=== PATIENT | female | born 1950 | race Caucasian/White ===

== ENCOUNTER 2018-02-10 15:01 | Emergency (ER) | payer MEDICARE ==
[~2018-02-10] VITALS: Ht 578.2 cm; Wt 72.7 kg
[~2018-02-10 15:01] MED LIST: ATEN25TA PO; CETI-102 PO; LEVO75TA7 PO; OMEP20TA5 PO; TRIA1TAB3 PO
[2018-02-10 15:27] LABS: HEMATOCRIT 40.3 % (35.0-45.0); HEMOGLOBIN 12.8 g/dl (12.0-16.0); MEAN CORPUSCULAR HGB CONC 31.8 % (33.0-36.5); MEAN CORPUSCULAR VOLUME 78.6 FL (78-98); MEAN PLATELET VOLUME 7.2 FL (7.4-10.4); PLATELET COUNT 378 X10'3 (140-440); RED BLOOD COUNT 5.13 X10'6 (4.20-5.60); RED CELL DISTRIBUTION WIDTH 14.7 % (11.5-14.5); WHITE BLOOD COUNT 22.1 X10'3 (4.5-11.0)
[2018-02-10 15:37] LABS: INR 1.3 INR; PARTIAL THROMBOPLASTIN TIME 27 SECONDS (22-32); PROTHROMBIN TIME 12.9 SECONDS (9.0-12.0)
[2018-02-10 15:41] LABS: ALANINE AMINOTRANSFERASE 32 U/L (12-78); ALBUMIN 2.2 G/DL (3.4-5.0); ALBUMIN/GLOBULIN RATIO 0.5 (1.1-1.5); ALKALINE PHOSPHATASE 274 IU/L (46-116); ANION GAP 14 (8-16); ASPARTATE AMINO TRANSFERASE 57 U/L (10-37); BILIRUBIN,TOTAL 1.2 MG/DL (0.1-1.0); BLOOD UREA NITROGEN 16 MG/DL (7-18); BUN/CREATININE RATIO 10.1 (6.6-38.0); CALCIUM 8.1 MG/DL (8.5-10.1); CHLORIDE 95 MMOL/L (99-107); CREATININE 1.59 MG/DL (0.40-0.90); GLUCOSE 164 MG/DL (70-104); POTASSIUM 4.2 MMOL/L (3.5-5.1); SODIUM 130 MMOL/L (135-145); TOTAL CARBON DIOXIDE 20.9 MMOL/L (24-32); TOTAL PROTEIN 6.5 G/DL (6.4-8.2); eGFR 32 ML/MIN
[2018-02-10 15:55] LABS: TOTAL CELLS COUNTED 100
[2018-02-10 15:57] LABS: PLATELET ESTIMATE NORMAL; POIKILOCYTOSIS 1+; POLYCHROMASIA FEW
[2018-02-10] MEDS ORDERED: ondansetron/PF 4mg/2ml inj IV ONE (16:35)
[2018-02-10] MEDS ORDERED: normal saline 1000ML IV soln IVB ONE (16:35)
[2018-02-10] MEDS: diatr meglu/diatrizoate 30ml oral sol.-(3 dose) bottle PO SCH ×2 (16:35→17:20)
[2018-02-10 16:44] LABS: D-DIMER 11.02 MG/L FEU (0-0.50)
[2018-02-10 16:49] LABS: LIPASE 329 U/L (73-393)
[2018-02-10] MEDS ORDERED: normal saline 1000ML IV soln IV ONE (16:50)
[2018-02-10] MEDS ORDERED: fentaNYL/PF 50MCG/1 ML 2ML syringe IV ONE ×2 (17:00→19:35)
[2018-02-10] MEDS ORDERED: iohexol 350MG/ML 100ml bottle IV ONE (17:24)
[2018-02-10] MEDS ORDERED: furosemide 10 MG/1 ML 10ml inj IV ONE (18:15)
[2018-02-10 19:53] LABS: UA COLLECTION TYPE CLN CATCH MIDSTREAM
[2018-02-10 19:54] LABS: CLARITY,URINE CLEAR (Clear); COLOR,URINE YELLOW (Yellow)
[2018-02-10 19:58] LABS: GLUCOSE, URINE NEGATIVE (Neg); PH,URINE 5.5 (4.8-8.0); PROTEIN,URINE TRACE mg/dl (Neg)
[2018-02-10 19:59] LABS: KETONES,URINE NEGATIVE (Neg); LEUKOCYTE ESTERASE ,URINE TRACE (Neg); NITRITES, URINE NEGATIVE (Neg); OCCULT BLOOD,URINE TRACE-INTACT (Neg)
[2018-02-10 20:00] LABS: BACTERIA,URINE 1+ /HPF (Neg); SQUAMOUS EPITHELIAL CELL,UR FEW /LPF (FEW)
[2018-02-10] MEDS ORDERED: ONDA4TAB9 PO (20:00)
[2018-02-10] MEDS ORDERED: OXYC-145 PO (20:00)
[2018-02-10 20:29] VITALS: BP 97/65
[2018-02-13 06:01] LABS: CARCINOEMBRYONIC ANTIGEN 28.1 ng/mL (0.0-4.7)
== END 2018-02-10 20:33 | disposition home or self-care (01) ==
LOC: ER 15:01
DX: C25.9 Malignant neoplasm of pancreas, unspecified (principal); I10 Essential (primary) hypertension; K21.9 Gastro-esophageal reflux disease without esophagitis; Z79.899 Other long term (current) drug therapy
CPT/HCPCS: 36415; 71045; 71275; 74177; 80053; 81001; 82378; 83605; 83690; 83880; 84484; 85025; 85379; 85610; 85730; 86301; 87040; 87088; 93005; 96361; 96374; 96375; 99285; J2405; J3010; J7030; Q9967

== ENCOUNTER 2018-02-14 09:05 | Inpatient (IN) | payer MEDICARE ==
[~2018-02-14] VITALS: Ht 167.6 cm; Wt 93.3 kg
[~2018-02-14 09:05] MED LIST changes: +ONDA4TAB9 PO; +OXYC-145 PO
[2018-02-14] MEDS ORDERED: LOSA50TA3 PO (09:46)
[2018-02-14] MEDS ORDERED: LEVO500T2 PO (09:46)
[2018-02-14] MEDS ORDERED: TRAZ150T78 PO (09:46)
[2018-02-14] MEDS ORDERED: ONDA4TAB9 PO (09:47)
[2018-02-14] MEDS ORDERED: OXYC-145 PO (09:47)
[2018-02-14 09:55] LABS: HEMATOCRIT 41.2 % (35.0-45.0); HEMOGLOBIN 13.3 g/dl (12.0-16.0); MEAN CORPUSCULAR HGB CONC 32.3 % (33.0-36.5); MEAN CORPUSCULAR VOLUME 77.3 FL (78-98); PLATELET COUNT 178 X10'3 (140-440); RED BLOOD COUNT 5.32 X10'6 (4.20-5.60); RED CELL DISTRIBUTION WIDTH 16.6 % (11.5-14.5)
[2018-02-14 10:02] LABS: WHITE BLOOD COUNT 34.3 X10'3 (4.5-11.0)
[2018-02-14] MEDS ORDERED: normal saline 1000ML IV soln IV ONE (10:05)
[2018-02-14] MEDS ORDERED: CefTRIAXone 2gm/D5W 50ml 50 ML IV ONE (10:05)
[2018-02-14 10:09] LABS: ALANINE AMINOTRANSFERASE 27 U/L (12-78); ALBUMIN 1.9 G/DL (3.4-5.0); ALBUMIN/GLOBULIN RATIO 0.5 (1.1-1.5); ALKALINE PHOSPHATASE 296 IU/L (46-116); ANION GAP 17 (8-16); ASPARTATE AMINO TRANSFERASE 56 U/L (10-37); BILIRUBIN,TOTAL 0.9 MG/DL (0.1-1.0); BLOOD UREA NITROGEN 21 MG/DL (7-18); BUN/CREATININE RATIO 14.4 (6.6-38.0); CALCIUM 8.5 MG/DL (8.5-10.1); CHLORIDE 97 MMOL/L (99-107); CREATININE 1.46 MG/DL (0.40-0.90); GLUCOSE 160 MG/DL (70-104); POTASSIUM 4.5 MMOL/L (3.5-5.1); SODIUM 131 MMOL/L (135-145); TOTAL CARBON DIOXIDE 17.1 MMOL/L (24-32); TOTAL PROTEIN 6.1 G/DL (6.4-8.2); eGFR 36 ML/MIN
[2018-02-14 10:10] LABS: ANISOCYTOSIS 1+; PLATELET ESTIMATE NORMAL; TOTAL CELLS COUNTED 100
[2018-02-14 10:11] LABS: MICROCYTOSIS 1+; POIKILOCYTOSIS FEW; POLYCHROMASIA FEW
[2018-02-14] MEDS ORDERED: piperacillin/tazo 3.375gm/50ml 50 ML IV ONE (10:45)
[2018-02-14] MEDS ORDERED: enoxaparin 100mg/ml syringe SUBCUT ONE (10:55)
[2018-02-14] MEDS ORDERED: enoxaparin 80mg/0.8ml syringe SUBCUT ONE (11:05)
[2018-02-14] MEDS ORDERED: morphine 4 MG/ML inj SYRINge IV ONE (13:35)
[2018-02-14 14:08] LABS: CLARITY,URINE CLEAR (Clear); COLOR,URINE YELLOW (Yellow); GLUCOSE, URINE NEGATIVE (Neg); KETONES,URINE NEGATIVE (Neg); LEUKOCYTE ESTERASE ,URINE TRACE (Neg); NITRITES, URINE NEGATIVE (Neg); OCCULT BLOOD,URINE NEGATIVE (Neg); PROTEIN,URINE TRACE mg/dl (Neg)
[2018-02-14 14:13] LABS: UA COLLECTION TYPE VOIDED
[2018-02-14 14:14] LABS: BACTERIA,URINE FEW /HPF (Neg); MUCUS STRANDS FEW /LPF (Neg); RBC,URINE 0-2 /HPF (0-2); SQUAMOUS EPITHELIAL CELL,UR FEW /LPF (FEW)
[2018-02-14] MEDS ORDERED: acetylcysteine 200 MG/ml 4ml vial PO ONE (14:20)
[2018-02-14] MEDS ORDERED: acetylcysteine 200 MG/ml 4ml vial CORPAK ONE (14:20)
[2018-02-14] MEDS ORDERED: normal saline 1000ml 1,000 ML IV SCH (15:02)
[2018-02-14] MEDS ORDERED: iohexol 350MG/ML 100ml bottle IV ONE (15:04)
[2018-02-14] MEDS ORDERED: HYDROcodone/acetaminophen 5mg/325mg tablet PO PRN (15:05)
[2018-02-14] MEDS ORDERED: magnesium Cl slow-release 64mg tablet PO PRN (15:05)
[2018-02-14] MEDS ORDERED: potassium Cl 20 mEq SR tablet PO PRN ×2 (15:05)
[2018-02-14] MEDS ORDERED: ondansetron/PF 4mg/2ml inj IV PRN (15:05)
[2018-02-14] MEDS ORDERED: HYDROcodone/acetaminophen 10/325mg tab PO PRN (15:05)
[2018-02-14] MEDS ORDERED: potassium Cl 40MEQ/NS 500ml 500 ML IV PRN ×2 (15:05)
[2018-02-14] MEDS ORDERED: mag hydrox/Alum hydrox/simeth 30ml oral suspension PO PRN (15:05)
[2018-02-14] MEDS ORDERED: morphine 4 MG/ML inj SYRINge IV PRN ×2 (15:05)
[2018-02-14] MEDS ORDERED: acetaminophen 325mg tablet PO PRN (15:05)
[2018-02-14] MEDS ORDERED: magnesium 4gm in 100ml NS 100 ML IV PRN (15:05)
[2018-02-14] MEDS ORDERED: magnesium 1gm/100ml D5W IVPB 100 ML IV PRN (15:05)
[2018-02-14] MEDS ORDERED: bisacodyl 10mg suppository rectal RC PRN (15:05)
[2018-02-14] MEDS ORDERED: vancomycin/NS 1 GM ADD-VANTAGE 250 ML IV SCH (15:15)
[2018-02-14] MEDS ORDERED: cetirizine 10mg tablet PO PRN (15:35)
[2018-02-14] MEDS ORDERED: piperacillin/tazo 4.5gm/100ml 100 ML IV SCH (16:00)
[2018-02-14 16:59] VITALS: BP 108/70
[2018-02-14] MEDS: piperacillin/tazo 4.5gm/100ml 100 ML IV SCH (18:00)
[2018-02-14 19:00] VITALS: BP 92/51
[2018-02-14] MEDS: docusate sod 100mg capsule PO SCH (20:16)
[2018-02-14] MEDS: traZODone 150mg tablet PO SCH (20:16)
[2018-02-14] MEDS: lactobacillus rhamnosus 10,000 MMU CELLS/CAPSULE PO SCH (20:16)
[2018-02-14] MEDS: sodium bicarbonate (8.4%) inj. 150 MEQ in dextrose 5%-water 1,000 ML IV SCH (20:26)
[2018-02-14 23:00] VITALS: BP 106/45
[2018-02-14] MEDS: enoxaparin 80mg/0.8ml syringe SUBCUT SCH (23:00)
[2018-02-15] VITALS (15 sets, daily range): BP systolic 76–155; BP diastolic 42–92
[2018-02-15] MEDS: piperacillin/tazo 4.5gm/100ml 100 ML IV SCH ×3 (02:00→17:58)
[2018-02-15 06:06] LABS: ALANINE AMINOTRANSFERASE 24 U/L (12-78); ALBUMIN 1.6 G/DL (3.4-5.0); ALBUMIN/GLOBULIN RATIO 0.4 (1.1-1.5); ALKALINE PHOSPHATASE 263 IU/L (46-116); ANION GAP 12 (8-16); ASPARTATE AMINO TRANSFERASE 56 U/L (10-37); BILIRUBIN,TOTAL 0.6 MG/DL (0.1-1.0); BLOOD UREA NITROGEN 23 MG/DL (7-18); BUN/CREATININE RATIO 18.7 (6.6-38.0); CALCIUM 7.5 MG/DL (8.5-10.1); CHLORIDE 99 MMOL/L (99-107); CREATININE 1.23 MG/DL (0.40-0.90); GLUCOSE 149 MG/DL (70-104); MAGNESIUM 1.9 MG/DL (1.5-2.4); SODIUM 134 MMOL/L (135-145); TOTAL CARBON DIOXIDE 22.8 MMOL/L (24-32); TOTAL PROTEIN 5.4 G/DL (6.4-8.2); eGFR 44 ML/MIN
[2018-02-15 06:08] LABS: HEMATOCRIT 39.7 % (35.0-45.0); HEMOGLOBIN 12.9 g/dl (12.0-16.0); MEAN CORPUSCULAR HGB CONC 32.6 % (33.0-36.5); MEAN CORPUSCULAR VOLUME 76.6 FL (78-98); MEAN PLATELET VOLUME 7.4 FL (7.4-10.4); PLATELET COUNT 158 X10'3 (140-440); RED BLOOD COUNT 5.18 X10'6 (4.20-5.60); RED CELL DISTRIBUTION WIDTH 16.3 % (11.5-14.5); WHITE BLOOD COUNT 24.7 X10'3 (4.5-11.0)
[2018-02-15 06:48] LABS: TOTAL CELLS COUNTED 100
[2018-02-15] MEDS: K and/or MAG REPLACEMENT MC SCH (06:52)
[2018-02-15 06:57] LABS: ANISOCYTOSIS 1+; PLATELET ESTIMATE NORMAL
[2018-02-15 06:59] LABS: BURR CELLS 1+; HYPOCHROMASIA 1+; MICROCYTOSIS 1+; POLYCHROMASIA 1+
[2018-02-15 07:00] LABS: SCHISTOCYTES FEW
[2018-02-15] MEDS ORDERED: levoTHYROXINE 75mcg tablet PO SCH (08:00)
[2018-02-15] MEDS: enoxaparin 80mg/0.8ml syringe SUBCUT SCH ×2 (08:12→20:57)
[2018-02-15] MEDS: lactobacillus rhamnosus 10,000 MMU CELLS/CAPSULE PO SCH ×2 (08:12→20:57)
[2018-02-15] MEDS: sodium bicarbonate (8.4%) inj. 150 MEQ in dextrose 5%-water 1,000 ML IV SCH ×2 (08:12→18:35)
[2018-02-15] MEDS: docusate sod 100mg capsule PO SCH ×2 (08:12→20:57)
[2018-02-15] MEDS: pantoprazole 40mg Tablet.DR PO SCH (08:12)
[2018-02-15] MEDS: oxyCODONE/APAP 5-325mg tablet PO PRN ×2 (09:29→15:24)
[2018-02-15] MEDS ORDERED: normal saline 500ml IV soln 1,000 ML IV ONE (12:05)
[2018-02-15] MEDS ORDERED: vancomycin/NS 1 GM ADD-VANTAGE 250 ML IV SCH (15:00)
[2018-02-15 16:09] LABS: CLARITY,URINE SLIGHTLY CLOUDY (Clear); COLOR,URINE YELLOW (Yellow); GLUCOSE, URINE NEGATIVE (Neg); KETONES,URINE TRACE mg/dl (Neg); LEUKOCYTE ESTERASE ,URINE NEGATIVE (Neg); NITRITES, URINE NEGATIVE (Neg); OCCULT BLOOD,URINE TRACE-INTACT (Neg); PH,URINE 5.5 (4.8-8.0); PROTEIN,URINE TRACE mg/dl (Neg); UROBILINOGEN,URINE 0.2 E.U/dL (0.2-1.0)
[2018-02-15 16:11] LABS: SODIUM,URINE RANDOM < 15 MEQ/L
[2018-02-15 16:28] LABS: UA COLLECTION TYPE NON-SPECIFIED
[2018-02-15 16:31] LABS: AMORPHOUS URATES 1+; BACTERIA,URINE 1+ /HPF (Neg); SQUAMOUS EPITHELIAL CELL,UR FEW /LPF (FEW)
[2018-02-15 16:33] LABS: WBC CLUMPS,URINE FEW /HPF (NEGATIVE)
[2018-02-15 16:35] LABS: HYALINE CASTS 0-3 /LPF (NEGATIVE); MUCUS STRANDS FEW /LPF (Neg); TRANSITIONAL EPI CELLS,URINE MODERATE /HPF
[2018-02-15 17:11] LABS: UA EOSINOPHILS NO EOS /HPF
[2018-02-15] MEDS: LACTOSE-FREE FOOD 237ML (BOOST) PO SCH (18:25)
[2018-02-15] MEDS: traZODone 150mg tablet PO SCH (20:57)
[2018-02-16] MEDS: sodium bicarbonate (8.4%) inj. 150 MEQ in dextrose 5%-water 1,000 ML IV SCH (01:03)
[2018-02-16] MEDS: piperacillin/tazo 4.5gm/100ml 100 ML IV SCH ×3 (01:05→19:35)
[2018-02-16] MEDS: oxyCODONE/APAP 5-325mg tablet PO PRN (02:44)
[2018-02-16 03:00] VITALS: BP 90/66
[2018-02-16 06:22] LABS: BASOPHILS % (AUTO) 0 % (0-1); EOSINOPHILS # (AUTO) 0.5 X10'3 (0-0.9); EOSINOPHILS % (AUTO) 2.3 % (0-6); HEMATOCRIT 33.4 % (35.0-45.0); HEMOGLOBIN 11.1 g/dl (12.0-16.0); LYMPHOCYTES # (AUTO) 0.8 X10'3 (1.1-4.8); LYMPHOCYTES % (AUTO) 3.4 % (21-51); MEAN CORPUSCULAR HEMOGLOBIN 25.3 PG (27.0-31.0); MEAN CORPUSCULAR HGB CONC 33.3 % (33.0-36.5); MEAN PLATELET VOLUME 7.6 FL (7.4-10.4); MONOCYTES # (AUTO) 1.1 X10'3 (0-0.9); MONOCYTES % (AUTO) 4.5 % (2-12); NEUTROPHILS # (AUTO) 20.8 X10'3 (1.8-7.7); NEUTROPHILS % (AUTO) 89.8 % (42-75); PLATELET COUNT 130 X10'3 (140-440); RED CELL DISTRIBUTION WIDTH 16.9 % (11.5-14.5); WHITE BLOOD COUNT 23.1 X10'3 (4.5-11.0)
[2018-02-16 06:32] LABS: ALANINE AMINOTRANSFERASE 24 U/L (12-78); ALBUMIN 1.1 G/DL (3.4-5.0); ALBUMIN/GLOBULIN RATIO 0.3 (1.1-1.5); ALKALINE PHOSPHATASE 244 IU/L (46-116); ANION GAP 7 (8-16); ASPARTATE AMINO TRANSFERASE 62 U/L (10-37); BILIRUBIN,TOTAL 0.7 MG/DL (0.1-1.0); BLOOD UREA NITROGEN 23 MG/DL (7-18); BUN/CREATININE RATIO 16.7 (6.6-38.0); CALCIUM 6.9 MG/DL (8.5-10.1); CHLORIDE 98 MMOL/L (99-107); CREATININE 1.38 MG/DL (0.40-0.90); GLUCOSE 131 MG/DL (70-104); MAGNESIUM 1.5 MG/DL (1.5-2.4); POTASSIUM 3.5 MMOL/L (3.5-5.1); SODIUM 132 MMOL/L (135-145); TOTAL CARBON DIOXIDE 27.5 MMOL/L (24-32); TOTAL PROTEIN 4.4 G/DL (6.4-8.2); eGFR 38 ML/MIN
[2018-02-16 07:00] VITALS: BP 90/54
[2018-02-16] MEDS: pantoprazole 40mg Tablet.DR PO SCH (07:09)
[2018-02-16] MEDS: docusate sod 100mg capsule PO SCH ×2 (07:09→19:39)
[2018-02-16] MEDS: lactobacillus rhamnosus 10,000 MMU CELLS/CAPSULE PO SCH ×2 (07:09→19:35)
[2018-02-16] MEDS: levoTHYROXINE 100mcg tablet PO SCH (07:10)
[2018-02-16] MEDS: magnesium hydroxide 30ml (MOM) UD suspension PO PRN (07:13)
[2018-02-16] MEDS: K and/or MAG REPLACEMENT MC SCH (07:18)
[2018-02-16 07:20] LABS: TOTAL CELLS COUNTED 100
[2018-02-16 07:21] LABS: ANISOCYTOSIS 1+; LARGE PLATELETS FEW; MICROCYTOSIS 1+; PLATELET ESTIMATE DECREASED; POLYCHROMASIA FEW
[2018-02-16] MEDS: enoxaparin 80mg/0.8ml syringe SUBCUT SCH ×2 (08:00→19:39)
[2018-02-16] MEDS: LACTOSE-FREE FOOD 237ML (BOOST) PO SCH ×3 (08:00→18:00)
[2018-02-16 11:00] VITALS: BP 101/53
[2018-02-16] MEDS: potassium Cl 20mEq in NS 1,000 ML IV SCH ×2 (13:43→21:35)
[2018-02-16 15:00] VITALS: BP 94/65
[2018-02-16 19:00] VITALS: BP 96/68
[2018-02-16] MEDS: traZODone 150mg tablet PO SCH (21:34)
[2018-02-16 23:00] VITALS: BP 91/64
[2018-02-17] MEDS: piperacillin/tazo 4.5gm/100ml 100 ML IV SCH ×3 (02:22→19:06)
[2018-02-17 03:00] VITALS: BP 96/61
[2018-02-17] MEDS: potassium Cl 20mEq in NS 1,000 ML IV SCH ×3 (04:34→21:14)
[2018-02-17] MEDS: oxyCODONE/APAP 5-325mg tablet PO PRN ×2 (04:54→12:09)
[2018-02-17 05:49] LABS: HEMATOCRIT 34.3 % (35.0-45.0); HEMOGLOBIN 11.2 g/dl (12.0-16.0); MEAN CORPUSCULAR HEMOGLOBIN 25.3 PG (27.0-31.0); MEAN CORPUSCULAR HGB CONC 32.7 % (33.0-36.5); MEAN CORPUSCULAR VOLUME 77.4 FL (78-98); PLATELET COUNT 141 X10'3 (140-440); RED BLOOD COUNT 4.43 X10'6 (4.20-5.60); RED CELL DISTRIBUTION WIDTH 16.7 % (11.5-14.5)
[2018-02-17 06:01] LABS: WHITE BLOOD COUNT 26.6 X10'3 (4.5-11.0)
[2018-02-17 06:07] LABS: ALANINE AMINOTRANSFERASE 25 U/L (12-78); ALBUMIN 1.3 G/DL (3.4-5.0); ALBUMIN/GLOBULIN RATIO 0.4 (1.1-1.5); ALKALINE PHOSPHATASE 272 IU/L (46-116); ANION GAP 9 (8-16); ASPARTATE AMINO TRANSFERASE 70 U/L (10-37); BLOOD UREA NITROGEN 21 MG/DL (7-18); BUN/CREATININE RATIO 18.1 (6.6-38.0); CALCIUM 6.7 MG/DL (8.5-10.1); CHLORIDE 98 MMOL/L (99-107); CREATININE 1.16 MG/DL (0.40-0.90); GLUCOSE 117 MG/DL (70-104); MAGNESIUM 1.7 MG/DL (1.5-2.4); POTASSIUM 3.9 MMOL/L (3.5-5.1); SODIUM 133 MMOL/L (135-145); TOTAL CARBON DIOXIDE 26.4 MMOL/L (24-32); TOTAL PROTEIN 4.6 G/DL (6.4-8.2); eGFR 47 ML/MIN
[2018-02-17 06:42] LABS: ACANTHOCYTES FEW; ANISOCYTOSIS 1+; LARGE PLATELETS FEW; PLATELET ESTIMATE NORMAL; POLYCHROMASIA 1+; TOTAL CELLS COUNTED 100
[2018-02-17 06:43] LABS: MICROCYTOSIS FEW
[2018-02-17 07:00] VITALS: BP 112/63
[2018-02-17] MEDS: pantoprazole 40mg Tablet.DR PO SCH (07:29)
[2018-02-17] MEDS: lactobacillus rhamnosus 10,000 MMU CELLS/CAPSULE PO SCH ×2 (07:29→19:14)
[2018-02-17] MEDS: levoTHYROXINE 100mcg tablet PO SCH (07:29)
[2018-02-17] MEDS: enoxaparin 80mg/0.8ml syringe SUBCUT SCH ×2 (07:30→19:08)
[2018-02-17] MEDS: LACTOSE-FREE FOOD 237ML (BOOST) PO SCH ×3 (07:35→18:35)
[2018-02-17] MEDS: docusate sod 100mg capsule PO SCH ×2 (07:35→19:14)
[2018-02-17] MEDS: K and/or MAG REPLACEMENT MC SCH (08:00)
[2018-02-17 11:00] VITALS: BP 100/69
[2018-02-17 11:56] LABS: LIPASE 87 U/L (73-393)
[2018-02-17] MEDS ORDERED: VANCOMYCIN LEVEL IV ONE (14:30)
[2018-02-17 15:00] VITALS: BP 99/45
[2018-02-17] MEDS: magnesium hydroxide 30ml (MOM) UD suspension PO PRN (17:42)
[2018-02-17 19:00] VITALS: BP 104/73
[2018-02-17] MEDS: traZODone 150mg tablet PO SCH (21:14)
[2018-02-17 23:00] VITALS: BP 91/58
[2018-02-18] MEDS: piperacillin/tazo 4.5gm/100ml 100 ML IV SCH ×3 (02:17→19:45)
[2018-02-18 03:00] VITALS: BP 133/70
[2018-02-18] MEDS: oxyCODONE/APAP 5-325mg tablet PO PRN ×3 (03:37→19:47)
[2018-02-18 05:45] LABS: BASOPHILS % (AUTO) 0 % (0-1); EOSINOPHILS # (AUTO) 0.3 X10'3 (0-0.9); EOSINOPHILS % (AUTO) 1.4 % (0-6); HEMATOCRIT 32.2 % (35.0-45.0); HEMOGLOBIN 10.5 g/dl (12.0-16.0); LYMPHOCYTES % (AUTO) 3.9 % (21-51); MEAN CORPUSCULAR HEMOGLOBIN 25.1 PG (27.0-31.0); MEAN CORPUSCULAR HGB CONC 32.8 % (33.0-36.5); MEAN CORPUSCULAR VOLUME 76.7 FL (78-98); MEAN PLATELET VOLUME 7.9 FL (7.4-10.4); MONOCYTES # (AUTO) 1.1 X10'3 (0-0.9); MONOCYTES % (AUTO) 4.4 % (2-12); NEUTROPHILS % (AUTO) 90.3 % (42-75); PLATELET COUNT 136 X10'3 (140-440); RED BLOOD COUNT 4.19 X10'6 (4.20-5.60); RED CELL DISTRIBUTION WIDTH 17.6 % (11.5-14.5); WHITE BLOOD COUNT 24.4 X10'3 (4.5-11.0)
[2018-02-18 06:16] LABS: ALANINE AMINOTRANSFERASE 25 U/L (12-78); ALBUMIN 1.2 G/DL (3.4-5.0); ALBUMIN/GLOBULIN RATIO 0.4 (1.1-1.5); ALKALINE PHOSPHATASE 278 IU/L (46-116); ANION GAP 10 (8-16); ASPARTATE AMINO TRANSFERASE 57 U/L (10-37); BILIRUBIN,TOTAL 0.9 MG/DL (0.1-1.0); BLOOD UREA NITROGEN 22 MG/DL (7-18); BUN/CREATININE RATIO 20.2 (6.6-38.0); CHLORIDE 101 MMOL/L (99-107); CREATININE 1.09 MG/DL (0.40-0.90); GLUCOSE 124 MG/DL (70-104); MAGNESIUM 1.9 MG/DL (1.5-2.4); POTASSIUM 4.4 MMOL/L (3.5-5.1); SODIUM 135 MMOL/L (135-145); TOTAL CARBON DIOXIDE 23.8 MMOL/L (24-32); TOTAL PROTEIN 4.6 G/DL (6.4-8.2); eGFR 50 ML/MIN
[2018-02-18] MEDS: potassium Cl 20mEq in NS 1,000 ML IV SCH ×3 (06:16→22:43)
[2018-02-18 07:00] VITALS: BP 97/65
[2018-02-18] MEDS: LACTOSE-FREE FOOD 237ML (BOOST) PO SCH ×3 (08:00→18:00)
[2018-02-18] MEDS: K and/or MAG REPLACEMENT MC SCH (08:00)
[2018-02-18] MEDS: docusate sod 100mg capsule PO SCH ×2 (08:00→19:44)
[2018-02-18] MEDS: enoxaparin 80mg/0.8ml syringe SUBCUT SCH ×2 (08:00→19:42)
[2018-02-18] MEDS: pantoprazole 40mg Tablet.DR PO SCH (08:14)
[2018-02-18] MEDS: levoTHYROXINE 100mcg tablet PO SCH (08:14)
[2018-02-18] MEDS: lactobacillus rhamnosus 10,000 MMU CELLS/CAPSULE PO SCH ×2 (08:14→19:45)
[2018-02-18 11:00] VITALS: BP 101/59
[2018-02-18 15:00] VITALS: BP 119/80
[2018-02-18 18:00] VITALS: BP 135/60
[2018-02-18] MEDS: traZODone 150mg tablet PO SCH (21:21)
[2018-02-18 22:00] VITALS: BP 100/66
[2018-02-19 02:00] VITALS: BP 134/80
[2018-02-19] MEDS: piperacillin/tazo 4.5gm/100ml 100 ML IV SCH ×3 (02:14→17:27)
[2018-02-19] MEDS: oxyCODONE/APAP 5-325mg tablet PO PRN ×3 (05:28→18:58)
[2018-02-19 06:30] VITALS: BP 99/66
[2018-02-19 06:32] LABS: BASOPHILS % (AUTO) 0 % (0-1); EOSINOPHILS # (AUTO) 0.6 X10'3 (0-0.9); EOSINOPHILS % (AUTO) 2.6 % (0-6); HEMATOCRIT 36.1 % (35.0-45.0); HEMOGLOBIN 11.8 g/dl (12.0-16.0); LYMPHOCYTES # (AUTO) 0.7 X10'3 (1.1-4.8); LYMPHOCYTES % (AUTO) 2.7 % (21-51); MEAN CORPUSCULAR HEMOGLOBIN 25.6 PG (27.0-31.0); MEAN CORPUSCULAR HGB CONC 32.8 % (33.0-36.5); MEAN CORPUSCULAR VOLUME 78.3 FL (78-98); MEAN PLATELET VOLUME 8.1 FL (7.4-10.4); MONOCYTES % (AUTO) 4.1 % (2-12); NEUTROPHILS # (AUTO) 22.1 X10'3 (1.8-7.7); NEUTROPHILS % (AUTO) 90.6 % (42-75); PLATELET COUNT 101 X10'3 (140-440); RED BLOOD COUNT 4.62 X10'6 (4.20-5.60); RED CELL DISTRIBUTION WIDTH 17.7 % (11.5-14.5); WHITE BLOOD COUNT 24.4 X10'3 (4.5-11.0)
[2018-02-19 06:36] LABS: ALANINE AMINOTRANSFERASE 22 U/L (12-78); ALBUMIN 1.2 G/DL (3.4-5.0); ALBUMIN/GLOBULIN RATIO 0.3 (1.1-1.5); ALKALINE PHOSPHATASE 326 IU/L (46-116); ANION GAP 10 (8-16); ASPARTATE AMINO TRANSFERASE 64 U/L (10-37); BILIRUBIN,TOTAL 1.1 MG/DL (0.1-1.0); BLOOD UREA NITROGEN 21 MG/DL (7-18); CALCIUM 7.2 MG/DL (8.5-10.1); CHLORIDE 100 MMOL/L (99-107); GLUCOSE 107 MG/DL (70-104); MAGNESIUM 1.8 MG/DL (1.5-2.4); POTASSIUM 4.5 MMOL/L (3.5-5.1); SODIUM 132 MMOL/L (135-145); TOTAL CARBON DIOXIDE 21.9 MMOL/L (24-32); TOTAL PROTEIN 4.9 G/DL (6.4-8.2); eGFR 55 ML/MIN
[2018-02-19 06:51] LABS: TOTAL CELLS COUNTED 100
[2018-02-19 06:52] LABS: ANISOCYTOSIS 2+; PLATELET ESTIMATE DECREASED
[2018-02-19] MEDS: docusate sod 100mg capsule PO SCH ×2 (08:00→20:00)
[2018-02-19] MEDS: K and/or MAG REPLACEMENT MC SCH (08:00)
[2018-02-19] MEDS: LACTOSE-FREE FOOD 237ML (BOOST) PO SCH ×3 (08:00→18:00)
[2018-02-19] MEDS: potassium Cl 20mEq in NS 1,000 ML IV SCH (08:06)
[2018-02-19] MEDS: levoTHYROXINE 100mcg tablet PO SCH (08:43)
[2018-02-19] MEDS: pantoprazole 40mg Tablet.DR PO SCH (08:43)
[2018-02-19] MEDS: lactobacillus rhamnosus 10,000 MMU CELLS/CAPSULE PO SCH ×2 (08:43→20:20)
[2018-02-19] MEDS: enoxaparin 80mg/0.8ml syringe SUBCUT SCH ×2 (08:58→20:22)
[2018-02-19 11:00] VITALS: BP 129/80
[2018-02-19] MEDS: albuterol 2.5 MG/3 ML nebule NEB SCH ×5 (12:51→23:13)
[2018-02-19 15:00] VITALS: BP 116/62
[2018-02-19 18:00] VITALS: BP 114/72
[2018-02-19] MEDS: traZODone 150mg tablet PO SCH (20:20)
[2018-02-19 22:00] VITALS: BP 126/81
[2018-02-20 02:00] VITALS: BP 119/83
[2018-02-20] MEDS: piperacillin/tazo 4.5gm/100ml 100 ML IV SCH ×2 (02:18→10:59)
[2018-02-20] MEDS: albuterol 2.5 MG/3 ML nebule NEB SCH ×2 (03:17→07:18)
[2018-02-20 06:00] VITALS: BP 137/83
[2018-02-20 06:56] LABS: BASOPHILS % (AUTO) 0 % (0-1); EOSINOPHILS # (AUTO) 0.8 X10'3 (0-0.9); EOSINOPHILS % (AUTO) 3.5 % (0-6); HEMATOCRIT 35.7 % (35.0-45.0); HEMOGLOBIN 11.8 g/dl (12.0-16.0); LYMPHOCYTES # (AUTO) 0.6 X10'3 (1.1-4.8); LYMPHOCYTES % (AUTO) 2.6 % (21-51); MEAN CORPUSCULAR HEMOGLOBIN 25.7 PG (27.0-31.0); MEAN CORPUSCULAR HGB CONC 33.1 % (33.0-36.5); MEAN CORPUSCULAR VOLUME 77.7 FL (78-98); MEAN PLATELET VOLUME 8.5 FL (7.4-10.4); MONOCYTES # (AUTO) 1.2 X10'3 (0-0.9); NEUTROPHILS # (AUTO) 21.1 X10'3 (1.8-7.7); NEUTROPHILS % (AUTO) 88.9 % (42-75); PLATELET COUNT 85 X10'3 (140-440); RED BLOOD COUNT 4.59 X10'6 (4.20-5.60); RED CELL DISTRIBUTION WIDTH 18.4 % (11.5-14.5); WHITE BLOOD COUNT 23.7 X10'3 (4.5-11.0)
[2018-02-20 07:15] LABS: ALANINE AMINOTRANSFERASE 24 U/L (12-78); ALBUMIN 1.2 G/DL (3.4-5.0); ALBUMIN/GLOBULIN RATIO 0.3 (1.1-1.5); ALKALINE PHOSPHATASE 387 IU/L (46-116); ANION GAP 7 (8-16); ASPARTATE AMINO TRANSFERASE 64 U/L (10-37); BILIRUBIN,TOTAL 0.9 MG/DL (0.1-1.0); BLOOD UREA NITROGEN 21 MG/DL (7-18); BUN/CREATININE RATIO 22.6 (6.6-38.0); CALCIUM 7.3 MG/DL (8.5-10.1); CHLORIDE 100 MMOL/L (99-107); CREATININE 0.93 MG/DL (0.40-0.90); GLUCOSE 107 MG/DL (70-104); POTASSIUM 4.3 MMOL/L (3.5-5.1); SODIUM 131 MMOL/L (135-145); TOTAL CARBON DIOXIDE 23.8 MMOL/L (24-32); TOTAL PROTEIN 4.8 G/DL (6.4-8.2); eGFR 60 ML/MIN
[2018-02-20] MEDS: docusate sod 100mg capsule PO SCH (07:46)
[2018-02-20] MEDS: enoxaparin 80mg/0.8ml syringe SUBCUT SCH (07:46)
[2018-02-20] MEDS: lactobacillus rhamnosus 10,000 MMU CELLS/CAPSULE PO SCH (07:46)
[2018-02-20] MEDS: pantoprazole 40mg Tablet.DR PO SCH (07:46)
[2018-02-20] MEDS: levoTHYROXINE 100mcg tablet PO SCH (07:46)
[2018-02-20] MEDS: oxyCODONE/APAP 5-325mg tablet PO PRN (07:47)
[2018-02-20] MEDS: K and/or MAG REPLACEMENT MC SCH (08:00)
[2018-02-20] MEDS: LACTOSE-FREE FOOD 237ML (BOOST) PO SCH (08:00)
[2018-02-20 11:00] VITALS: BP 122/66
== END 2018-02-20 14:13 | DRG 871 ==
LOC: ER 09:06 → ED HOLD 15:02 → PCU 3S 16:43
PROVIDERS: ADMIT Internal Medicine; ATTEND Family Medicine
PROC: B32T1ZZ Computerized Tomography (CT Scan) of Left Pulmonary Artery using Low Osmolar Contrast (ICD-10-PCS; principal; 2018-02-14)
PROC: B3201ZZ Computerized Tomography (CT Scan) of Thoracic Aorta using Low Osmolar Contrast (ICD-10-PCS; 2018-02-14)
PROC: B32S1ZZ Computerized Tomography (CT Scan) of Right Pulmonary Artery using Low Osmolar Contrast (ICD-10-PCS; 2018-02-14)
DX: A41.9 Sepsis, unspecified organism (principal); J18.9 Pneumonia, unspecified organism; J96.00 Acute respiratory failure, unspecified whether with hypoxia or hypercapnia; I26.99 Other pulmonary embolism without acute cor pulmonale; C78.00 Secondary malignant neoplasm of unspecified lung; N39.0 Urinary tract infection, site not specified; C25.9 Malignant neoplasm of pancreas, unspecified; C78.7 Secondary malignant neoplasm of liver and intrahepatic bile duct; N17.9 Acute kidney failure, unspecified; I12.9 Hypertensive chronic kidney disease with stage 1 through stage 4 chronic kidney disease, or unspecified chronic kidney disease; E03.9 Hypothyroidism, unspecified; E28.39 Other primary ovarian failure; E86.0 Dehydration; K21.9 Gastro-esophageal reflux disease without esophagitis; E05.00 Thyrotoxicosis with diffuse goiter without thyrotoxic crisis or storm; N18.9 Chronic kidney disease, unspecified; N89.8 Other specified noninflammatory disorders of vagina; Z66 Do not resuscitate; Z79.899 Other long term (current) drug therapy; Z87.891 Personal history of nicotine dependence; Z80.3 Family history of malignant neoplasm of breast; Z82.5 Family history of asthma and other chronic lower respiratory diseases
CPT/HCPCS: 36415; 71045; 71250; 71275; 74176; 76856; 80053; 81001; 82570; 83605; 83690; 83735; 83880; 84145; 84300; 84443; 85025; 87040; 87070; 87088; 87207; 93005; 93306; 94640; 94760; 97110; 97162; 97530; J0696; J1650; J2270; J2543; J3370; J7030; Q9967